=== PATIENT | male | born 1995 | race Caucasian/White ===

== ENCOUNTER 2016-06-30 12:40 | Emergency (ER) | payer BC ==
[2016-06-30 13:14] VITALS: BP 104/60
--- NOTE | 2016-06-30 13:54 | UC ---
HPI Wound/Suture Re-check - HPI Summary HPI Summary: Patient has [address] on right hand after shutting his hand in the door. they stitched were placed at [facility] ER. - History Of Current Complaint Chief Complaint: MICHAELkin Stated Complaint: SUTURE REMOVAL Time Seen by Provider: 06/30/16 13:38 Hx Obtained From: Patient Onset/Duration: Sudden Onset, Lasting Days Severity: Mild - Allergies/Home Medications Allergies/Adverse Reactions: Allergies Allergy/AdvReac Type Severity Reaction Status Date / Time No Known Allergies Allergy Verified 02/25/16 20:57 Home Medications: Home Medications Amphetamine-Dextroamphetamine [Adderall Xr 10 mg-] 1 cap PO TID 06/30/16 [ History Confirmed 06/30/16] PMH/Surg Hx/FS Hx/Imm Hx Previously Healthy: Yes Respiratory History Of: Denies: Asthma, Bronchitis, Pneumonia - Surgical History Surgical History: Yes Surgery Procedure, Year, and Place: T&A - Family History Known Family History: Negative: Cardiac Disease, Hypertension, Diabetes - Social History Alcohol Use: Occasionally Substance Use Type: None Smoking Status (MU): Never Smoked Tobacco - Immunization History Most Recent Influenza Vaccination: none Vaccination Up to Date: Yes Review of Systems Constitutional: Negative Skin: Other - healed lacerations Eyes: Negative ENT: Negative Respiratory: Negative Cardiovascular: Negative Gastrointestinal: Negative Genitourinary: Negative Motor: Negative Neurovascular: Negative Musculoskeletal: Negative Neurological: Negative Psychological: Negative All Other Systems Reviewed And Are Negative: Yes Physical Exam Triage Information Reviewed: Yes Appearance: Well-Appearing, Well-Nourished, Pain Distress Vital Signs: Initial Vital Signs Temp 97.9 F 06/30/16 13:09 Pulse 60 06/30/16 13:09 Resp 16 06/30/16 13:09 BP 104/60 06/30/16 13:09 Pulse Ox 100 06/30/16 13:09 Vital Signs Reviewed: Yes Eye Exam: Normal Eyes: Positive: Conjunctiva Clear ENT Exam: Normal ENT: Positive: Normal ENT inspection, Hearing grossly normal, TMs normal Dental Exam: Normal Neck exam: Normal Respiratory Exam: Normal Cardiovascular Exam: Normal Abdominal Exam: Normal Musculoskeletal Exam: Normal Musculoskeletal: Positive: Strength Intact, ROM Intact, No Edema Neurological Exam: Normal Neurological: Positive: Alert, Muscle Tone Normal Psychological Exam: Normal Skin: Positive: Other - 2 small lacerations on the 2nd thand tird knuckles, small gap in the 3rd knuckle otherwise well healed. Course/Dx - Course Course Of Treatment: hx obtained, 2 steri strips placed for reinforcement. - Differential Dx - Laceration/Wound Differential Diagnoses: Abscess, Cellulitis, Suture Removal Provider Diagnoses: suture removal Discharge - Discharge Plan Condition: Stable Disposition: HOME Patient Education Materials: Stitches Removal (ED) Referrals: Non Staff,Doctor [Primary Care Provider] - Additional Instructions: Keep the area clean and dry follow upw tih any signs of infection, increased pain, swelling or redness.
== END 2016-06-30 13:59 | disposition home or self-care (01) ==
LOC: UCCORT 12:40
DX: Z48.02 Encounter for removal of sutures (principal)
CPT/HCPCS: 99211; G0463

== ENCOUNTER 2017-08-09 10:35 | Emergency (ER) | payer BC ==
[2017-08-09 10:54] VITALS: BP 126/70
--- NOTE | 2017-08-09 11:12 | UC ---
Respiratory Complaint HPI - HPI Summary HPI Summary: Patient's here today with 2 days of body aches congestion cough sore throat headache and malaise. - History of Current Complaint Chief Complaint: UCRespiratory Stated Complaint: ST/CONGESTION/COUGH Time Seen by Provider: 08/09/17 11:00 Hx Obtained From: Patient Onset/Duration: Sudden Onset, Lasting Days - 2, Still Present Timing: Constant Severity Initially: Moderate Severity Currently: Moderate Pain Intensity: 8 Pain Scale Used: 0-10 Numeric Character: Cough: Productive Aggravating Factors: Nothing Alleviating Factors: Nothing Associated Signs And Symptoms: Positive: Fever, Chills, Pleuritic Chest Pain, URI, Nasal Congestion - Allergies/Home Medications Allergies/Adverse Reactions: Allergies Allergy/AdvReac Type Severity Reaction Status Date / Time No Known Allergies Allergy Verified 08/09/17 10:47 PMH/Surg Hx/FS Hx/Imm Hx Previously Healthy: Yes - Surgical History Surgical History: Yes Surgery Procedure, Year, and Place: T&A - Family History Known Family History: Negative: Cardiac Disease, Hypertension, Diabetes - Social History Occupation: Employed Part-time, Student Lives: Dormitory/Roommates Alcohol Use: Occasionally Substance Use Type: None Smoking Status (MU): Never Smoked Tobacco - Immunization History Most Recent Influenza Vaccination: none Vaccination Up to Date: Yes Review of Systems Constitutional: Chills, Fatigue Skin: Negative Eyes: Negative ENT: Sore Throat, Nasal Discharge Respiratory: Cough Cardiovascular: Negative Gastrointestinal: Negative Genitourinary: Negative Motor: Negative Neurovascular: Negative Musculoskeletal: Negative Neurological: Negative Psychological: Negative Is Patient Immunocompromised?: No All Other Systems Reviewed And Are Negative: Yes Physical Exam Triage Information Reviewed: Yes Appearance: No Pain Distress, Well-Nourished, Ill-Appearing Vital Signs: Initial Vital Signs Temp 97.2 F 08/09/17 10:48 Pulse 91 08/09/17 10:48 Resp 18 08/09/17 10:48 BP 126/70 08/09/17 10:48 Pulse Ox 99 08/09/17 10:48 Vital Signs Reviewed: Yes Eye Exam: Normal Eyes: Positive: Conjunctiva Clear ENT Exam: Normal ENT: Positive: Normal ENT inspection, Hearing grossly normal, Pharyngeal erythema, Nasal congestion, TMs normal, Uvula midline. Negative: Sinus tenderness Dental Exam: Normal Neck exam: Normal Neck: Positive: Supple, Nontender, No Lymphadenopathy Respiratory Exam: Normal Respiratory: Positive: Chest non-tender, Lungs clear, Normal breath sounds, No respiratory distress, No accessory muscle use Cardiovascular Exam: Normal Cardiovascular: Positive: RRR, No Murmur, Pulses Normal, Brisk Capillary Refill Musculoskeletal Exam: Normal Musculoskeletal: Positive: Strength Intact, ROM Intact, No Edema Neurological Exam: Normal Neurological: Positive: Alert, Muscle Tone Normal Psychological Exam: Normal Skin Exam: Normal UC Diagnostic Evaluation - Laboratory O2 Sat by Pulse Oximetry: 99 Diagnostic Studies Comment: Rapid strep and influenza A and influenza B are negative Respiratory Course/Dx - Course Course Of Treatment: Discharge to home Zithromax, albuterol inhaler, Robitussin and Tylenol ibuprofen follow with PCP when necessary - Differential Dx/Diagnosis Provider Diagnoses: Bronchitis, febrile illness Discharge - Sign-Out/Discharge Documenting (check all that apply): Discharge - Discharge Plan Condition: Stable Disposition: HOME Prescriptions: Albuterol HFA INHALER* [Ventolin HFA Inhaler*] 2 puff INH Q4H PRN #1 mdi PRN Reason: cough/chest congestion Azithromycin TAB* [Zithromax TAB (Z-DO) 250 mg #6 tabs] 2 tab PO .TODAY, THEN 1 DAILY #1 do Patient Education Materials: Decongestant/Expectorant (By mouth), How to Use a Metered-Dose Inhaler (ED), Acute Bronchitis (ED) Referrals: [facility] [Outside] - If Needed [facility] [Outside] - If Needed - Billing Disposition and Condition Condition: STABLE Disposition: HOME
== END 2017-08-09 12:02 | disposition home or self-care (01) ==
LOC: UCCORT 10:35
DX: J40 Bronchitis, not specified as acute or chronic (principal); R50.9 Fever, unspecified
CPT/HCPCS: 87502; 87651; 99212; G0463

== ENCOUNTER 2019-01-04 14:49 | Emergency (ER) | payer BC ==
[2019-01-04 15:07] VITALS: BP 135/73
--- NOTE | 2019-01-04 15:24 | UC ---
Throat Pain/Nasal Hoang HPI - HPI Summary HPI Summary: 23-year-old male presents with one-week history of fatigue, general malaise, body aches, nasal congestion, runny nose, sore throat, and occasional dry nonproductive cough. Has only taken ibuprofen for his symptoms. Denies fever, chills, ear pain, dysphagia, chest pain, shortness of breath, abdominal pain, nausea, or vomiting. - History of Current Complaint Chief Complaint: UCGeneralIllness Stated Complaint: SORE THROAT/COUGH/FATIGUE Time Seen by Provider: 01/04/19 15:05 Hx Obtained From: Patient Pain Intensity: 0 - Allergies/Home Medications Allergies/Adverse Reactions: Allergies Allergy/AdvReac Type Severity Reaction Status Date / Time No Known Allergies Allergy Verified 01/04/19 15:08 Home Medications: Home Medications Ibuprofen TAB* [Advil TAB*] 4 tab PO ONCE 01/04/19 [History Confirmed 01/04/19] PMH/Surg Hx/FS Hx/Imm Hx Previously Healthy: Yes Psychological History: Anxiety, Other - ADHD - Surgical History Surgical History: Yes Surgery Procedure, Year, and Place: T&A - Family History Known Family History: Positive: Non-Contributory - Social History Occupation: Employed Full-time Lives: With Family Alcohol Use: Weekly Substance Use Type: Marijuana Substance Use Comment - Amount & Last Used: occasionally Smoking Status (MU): Never Smoked Tobacco Have You Smoked in the Last Year: No - Immunization History Most Recent Influenza Vaccination: none Vaccination Up to Date: Yes Review of Systems All Other Systems Reviewed And Are Negative: Yes Constitutional: Negative: Fever, Chills Skin: Negative: Rash Eyes: Negative: Drainage, Eye Redness ENT: Positive: Sore Throat, Nasal Discharge, Sinus Congestion. Negative: Ear Ache, Sinus Pain/Tenderness Respiratory: Positive: Cough. Negative: Shortness Of Breath Cardiovascular: Negative: Palpitations, Chest Pain Gastrointestinal: Negative: Abdominal Pain, Vomiting, Diarrhea, Nausea Genitourinary: Positive: Negative Musculoskeletal: Positive: Myalgia Neurological: Positive: Negative Is Patient Immunocompromised?: No Physical Exam - Summary Physical Exam Summary: GENERAL APPEARANCE: Well developed, well nourished, alert and cooperative, and appears to be in no acute distress. EYES: Conjunctiva clear. No drainage. EARS: External auditory canals and tympanic membranes clear, hearing grossly intact. NOSE: Mild nasal discharge. No nasal discharge. THROAT: Mild pharyngeal erythema. Post-nasal drip. Tonsils surgically absent. Uvula midline. NECK: Neck supple, non-tender without lymphadenopathy. CARDIAC: Normal S1 and S2. No S3, S4 or murmurs. Rhythm is regular. There is no peripheral edema, cyanosis or pallor. Extremities are warm and well perfused. Capillary refill is less than 2 seconds. Peripheral pulses intact. LUNGS: Clear to auscultation without rales, rhonchi, wheezing or diminished breath sounds. Cough no observed. ABDOMEN: Positive bowel sounds. Soft, nondistended, nontender. No guarding or rebound. No masses or hepatosplenomegally. MUSKULOSKELETAL: ROM intact to all extremities. No joint erythema or tenderness. Normal muscular development. Normal gait. SKIN: Skin normal color, texture and turgor with no lesions or eruptions. Triage Information Reviewed: Yes Vital Signs: Initial Vital Signs Temp 98.3 F 01/04/19 15:03 Pulse 55 01/04/19 15:03 Resp 16 01/04/19 15:03 BP 135/73 01/04/19 15:03 Pulse Ox 99 01/04/19 15:03 Vital Signs Reviewed: Yes Throat Pain/Nasal Course/Dx - Course Course Of Treatment: 23-year-old male presents with one-week history of fatigue, general malaise, body aches, nasal congestion, runny nose, sore throat, and occasional dry nonproductive cough. Has only taken ibuprofen for his symptoms. Denies fever, chills, ear pain, dysphagia, chest pain, shortness of breath, abdominal pain, nausea, or vomiting. Afebrile. Mildly hypertensive and was present stable. Patient had mild nasal congestion, mild pharyngeal erythema with postnasal drip , surgically absent tonsils, no cervical lymphadenopathy, clear breath sounds, and otherwise unremarkable exam. Rapid strep test was negative. Recommending symptomatic treatment for a viral upper respiratory infection. Patient is to return here or follow up with his primary care provider in 3-5 days if symptoms are not improving. Anticipatory warning symptoms reviewed with the patient. Verbalizes understanding and agrees with plan of care. - Differential Dx/Diagnosis Differential Diagnosis/HQI/PQRI: Pharyngitis, Sinusitis, Tonsillitis, URI Provider Diagnosis: Viral URI with cough Discharge ED - Sign-Out/Discharge Documenting (check all that apply): Patient Departure All imaging exams completed and their final reports reviewed: No Studies - Discharge Plan Condition: Stable Disposition: HOME Prescriptions: Benzonatate CAP* [Tessalon 100 MG CAP*] 100 mg PO TID PRN #21 cap PRN Reason: Cough Fluticasone NASAL SPRAY 50MCG* [Flonase NASAL SPRAY 50MCG*] 2 spray BOTH NARES DAILY #1 btl Patient Education Materials: Upper Respiratory Infection (ED) Referrals: No Primary Care Phys,NOPCP [Primary Care Provider] - Additional Instructions: Your history and exam are consistent with a viral upper respiratory infection. Viral infections do not respond to antibiotics and are limited to the treatment of symptoms. Viral infections typically run their course in 7-10 days but can sometimes last up to 2 weeks. Drink plenty of fluids to avoid dehydration especially if you are running any fever. Use a saline rinse kit such as Neti Pot or NeilMed at least twice a day to help thin secretions and promote drainage of the sinuses. Use fluticasone (Flonase) nasal spray 2 sprays each nostril once daily. Use an over the counter decongestant such as Sudafed according to directions to help with the congestion. Take Tessalon Perles 1 cap every 8 hours as needed for cough. Take over the counter acetaminophen (Tylenol) or ibuprofen (Advil, Motrin) according to directions as needed for pain or fever. Use salt water gargles several times a day if you have a sore throat. You may also use Chloraseptic spray or Cepacol lonzenges according to directions which contain a numbing medication and can provide some temporary relief from your sore throat. Return here of follow up with your primary care provider in 3-5 days if symptoms persist. Seek immediate medical attention in the emergency room if you have fever greater than 100.5 F despite taking acetaminophen or ibuprofen, have chest pain , difficulty breathing, are unable to swallow, or have any worsening of symptoms. - Billing Disposition and Condition Condition: STABLE Disposition: Home - Attestation Statements Provider Attestation: Per institutional requirements, I have reviewed the chart, however, I was not consulted specifically or made aware of this patient by the midlevel provider. I did not personally evaluate, interact with , or disposition this patient.
== END 2019-01-04 15:39 | disposition home or self-care (01) ==
LOC: UCCORT 14:49
DX: J06.9 Acute upper respiratory infection, unspecified (principal)
CPT/HCPCS: 87651; 99212; G0463

== ENCOUNTER 2019-01-23 20:05 | Emergency (ER) | payer BC ==
[2019-01-23 20:20] VITALS: BP 128/72
[2019-01-23] MEDS ORDERED: Amoxicillin/Clavulanate TAB* 875 MG PO ONE (20:32)
--- NOTE | 2019-01-23 20:32 | UC ---
Respiratory Complaint HPI - HPI Summary HPI Summary: 23 yo, seen here on 01/04 and diagnosed with viral illness and given advice about symptomatic treatment. Continues to feel unwell with some improvement followed by recurrent congestion and facial pain along with fatigue. Sleep disrupted. No hx of environmental allergies. No dyspena. - History of Current Complaint Chief Complaint: UCRespiratory Stated Complaint: CHEST CONGESTION Time Seen by Provider: 01/23/19 20:10 Hx Obtained From: Patient Onset/Duration: Gradual Onset, Lasting Weeks - 3 Pain Intensity: 7 Character: Cough: Nonproductive Aggravating Factors: Exertion, Recumbent Position Alleviating Factors: OTC Meds - occasional use if ibuprofen, flonase was of some benefit., Upright Position Associated Signs And Symptoms: Positive: URI, Nasal Congestion, Sinus Discomfort. Negative: Dyspnea, Fever, Wheezing - Allergies/Home Medications Allergies/Adverse Reactions: Allergies Allergy/AdvReac Type Severity Reaction Status Date / Time No Known Allergies Allergy Verified 01/23/19 20:11 PMH/Surg Hx/FS Hx/Imm Hx Previously Healthy: Yes Psychological History: Anxiety, Other - attention deficit disorder. - Surgical History Surgical History: Yes Surgery Procedure, Year, and Place: T&A - Family History Known Family History: Positive: Non-Contributory - Social History Alcohol Use: Occasionally Substance Use Type: Marijuana Substance Use Comment - Amount & Last Used: occasionally Smoking Status (MU): Never Smoked Tobacco Have You Smoked in the Last Year: No - Immunization History Most Recent Influenza Vaccination: none Vaccination Up to Date: Yes Review of Systems All Other Systems Reviewed And Are Negative: Yes Constitutional: Positive: Fatigue Skin: Positive: Negative Eyes: Positive: Negative ENT: Positive: Nasal Discharge, Sinus Congestion Respiratory: Positive: Cough Cardiovascular: Positive: Negative. Negative: Chest Pain Gastrointestinal: Positive: Negative Genitourinary: Positive: Negative Motor: Positive: Negative Neurovascular: Positive: Negative Musculoskeletal: Positive: Negative Neurological: Positive: Negative. Negative: Headache Psychological: Positive: Negative Is Patient Immunocompromised?: No Physical Exam Triage Information Reviewed: Yes Appearance: No Pain Distress, Ill-Appearing - congested, looks fatigued. Vital Signs: Initial Vital Signs Temp 97.6 F 01/23/19 20:13 Pulse 80 01/23/19 20:13 Resp 15 01/23/19 20:13 BP 128/72 01/23/19 20:13 Pulse Ox 97 01/23/19 20:13 Eyes: Positive: Conjunctiva Clear ENT: Positive: Pharyngeal erythema - posterior drainage, TMs normal, Sinus tenderness - maxillary. Negative: Tonsillar swelling Neck: Positive: Supple, Nontender, No Lymphadenopathy Respiratory: Positive: Lungs clear, Normal breath sounds Cardiovascular: Positive: RRR, No Murmur Musculoskeletal Exam: Normal Neurological: Positive: Alert, Muscle Tone Normal Psychological Exam: Normal Respiratory Course/Dx - Course Course Of Treatment: Given duration of illness, fatigue and sinus sx, will treat with augmentin. Continue flonase, ibuprofen, trial antihistamine. - Differential Dx/Diagnosis Differential Diagnosis/HQI/PQRI: Laryngitis, Lower Resp Infection, Sinusitis Provider Diagnosis: Sinusitis Discharge ED - Sign-Out/Discharge Documenting (check all that apply): Patient Departure All imaging exams completed and their final reports reviewed: No Studies - Discharge Plan Condition: Stable Disposition: HOME Prescriptions: Amoxicillin/Clavulanate TAB* [Augmentin TAB 875*] 875 mg PO BID #20 tab Patient Education Materials: Sinusitis (ED) Referrals: No Primary Care Phys,NOPCP [Primary Care Provider] - Additional Instructions: Take the full course of antibiotics to decrease the risk of developing bacterial resistance. Continue use of flonase spray. If symptoms persist despite antibiotic, you might try use of an antihistamine such as fexofenadine 180mg daily or cetirazine 10mg daily to see if this gives improvement in symptoms which might be related to environmental allergies. - Billing Disposition and Condition Condition: STABLE Disposition: Home
== END 2019-01-23 20:43 | disposition home or self-care (01) ==
LOC: UCCORT 20:05
DX: J32.9 Chronic sinusitis, unspecified (principal)
CPT/HCPCS: 99212; A9270-GY; G0463

== ENCOUNTER 2019-07-05 08:36 | Emergency (ER) | payer BC ==
[2019-07-05 08:51] VITALS: BP 118/73
--- NOTE | 2019-07-05 09:01 | UC ---
Throat Pain/Nasal Hoang HPI - HPI Summary HPI Summary: sore throat x 1 weeks nasal congestion , pnd, mild cough mild body aches and fatigue, no fever, no chills, no recent travels - History of Current Complaint Chief Complaint: UCRespiratory Stated Complaint: SORE THROAT Time Seen by Provider: 07/05/19 08:47 Hx Obtained From: Patient Onset/Duration: Gradual Onset, Lasting Days - 7, Still Present Severity: Mild Pain Intensity: 0 Cough: Nonproductive Associated Signs & Symptoms: Positive: Nasal Discharge. Negative: Wheezing, Sinus Discomfort, Fever, Vomiting - Allergies/Home Medications Allergies/Adverse Reactions: Allergies Allergy/AdvReac Type Severity Reaction Status Date / Time No Known Allergies Allergy Verified 07/05/19 08:46 Home Medications: Home Medications ALPRAZolam [Alprazolam ER] 1 mg PO BID PRN 02/25/16 [History Confirmed 07/05/19] Amphetamine/Dextroamph ER(NF) [Adderal XR (NF)] 20 mg PO DAILY 07/05/19 [ History Confirmed 07/05/19] PMH/Surg Hx/FS Hx/Imm Hx Previously Healthy: Yes - Surgical History Surgical History: Yes Surgery Procedure, Year, and Place: T&A - Family History Known Family History: Positive: Non-Contributory - Social History Alcohol Use: Occasionally Substance Use Type: Marijuana Substance Use Comment - Amount & Last Used: occasionally Smoking Status (MU): Never Smoked Tobacco Have You Smoked in the Last Year: No - Immunization History Most Recent Influenza Vaccination: none Vaccination Up to Date: Yes Review of Systems All Other Systems Reviewed And Are Negative: Yes Constitutional: Positive: Fatigue. Negative: Fever, Chills Skin: Positive: Negative Eyes: Positive: Negative ENT: Positive: Sore Throat, Nasal Discharge. Negative: Sinus Congestion, Sinus Pain/Tenderness Respiratory: Positive: Cough Is Patient Immunocompromised?: No Physical Exam Triage Information Reviewed: Yes Appearance: Well-Appearing, No Pain Distress, Well-Nourished Vital Signs: Initial Vital Signs Temp 97.5 F 07/05/19 08:44 Pulse 54 07/05/19 08:44 Resp 16 07/05/19 08:44 BP 118/73 07/05/19 08:44 Pulse Ox 100 07/05/19 08:44 Vital Signs Reviewed: Yes Eye Exam: Normal Eyes: Positive: Conjunctiva Clear ENT: Positive: Normal ENT inspection, Hearing grossly normal, Pharynx normal, TMs normal. Negative: TM bulging, TM dull, TM red, Tonsillar swelling, Tonsillar exudate Neck: Positive: Supple, Nontender, No Lymphadenopathy Respiratory Exam: Normal Respiratory: Positive: Chest non-tender, Lungs clear, Normal breath sounds Cardiovascular: Positive: RRR, No Murmur, Pulses Normal Skin Exam: Normal Throat Pain/Nasal Course/Dx - Differential Dx/Diagnosis Provider Diagnosis: URI (upper respiratory infection) Discharge ED - Sign-Out/Discharge Documenting (check all that apply): Patient Departure All imaging exams completed and their final reports reviewed: No Studies - Discharge Plan Condition: Stable Disposition: HOME Patient Education Materials: Upper Respiratory Infection (ED) Referrals: No Primary Care Phys,NOPCP [Primary Care Provider] - If Needed - Billing Disposition and Condition Condition: STABLE Disposition: Home
== END 2019-07-05 09:05 | disposition home or self-care (01) ==
LOC: UCCORT 08:36
DX: J06.9 Acute upper respiratory infection, unspecified (principal)
CPT/HCPCS: 99211; G0463